=== PATIENT | female | born 1960 | race Caucasian/White ===

== ENCOUNTER 2018-05-04 14:03 | Emergency (ER) | payer SELFPAY ==
[2018-05-04 14:43] VITALS: BP 133/96; PULSE 87; TEMP 98.7; BMI 29.2
--- NOTE | 2018-05-04 15:35 | PDOC ---
History of Present Illness - General Chief Complaint: Rash Stated Complaint: HIVES ALL OVER THE BODY Time Seen by Provider: 05/04/18 14:43 History Source: Patient Exam Limitations: No Limitations - History of Present Illness Initial Comments: 05/04/18 15:43 57 yo F w/ no sig PMHx comes in c/o a painful itchy rash to the L upper back, L side of the neck which started while she was cooking 2 days ago. She also had a tactile fever, took tylenol and it went away. NO other complaints today. no NVD , no change in appetite, no pain anywhere else, no rash on eyes/ears, no eye pain/ear pain. NO known exposure to any allergens/irritants, no known sick contacts, no recent travel. Pt had varicella as a kid. Past History - Past Medical History Allergies/Adverse Reactions: Allergies Allergy/AdvReac Type Severity Reaction Status Date / Time No Known Allergies Allergy Verified 05/04/18 14:35 Home Medications: Ambulatory Orders Acetaminophen W/ Codeine #3 [Tylenol # 3 -] 1 tab PO Q4H 3 Days #10 tablet MDD 6 05/04/18 Acyclovir [Zovirax -] 800 mg PO 5XD 7 Days #35 tablet 05/04/18 - Suicide/Smoking/Psychosocial Hx Smoking History: Never smoked Review of Systems - Review of Systems Able to Perform ROS?: Yes Constitutional: Yes: Fever. No: Chills, Malaise, Night Sweats HEENTM: No: Eye Pain, Recent change in vision, Throat Pain Respiratory: No: Cough, Shortness of Breath Cardiac (ROS): No: Chest Pain, Palpitations, Chest Tightness ABD/GI: No: Diarrhea, Nausea, Vomiting, Abdominal cramping : No: Dysuria, Hematuria Musculoskeletal: No: Back Pain Integumentary: Yes: Rash Neurological: No: Headache, Numbness, Dizziness Psychiatric: No: Change in Appetite Endocrine: No: Unexplained Weight Loss *Physical Exam - Vital Signs Last Vital Signs Temp Pulse Resp BP Pulse Ox 98.7 F 87 20 133/96 98 05/04/18 14:39 05/04/18 14:39 05/04/18 14:39 05/04/18 14:39 05/04/18 14:39 - Physical Exam General Appearance: Yes: Nourished. No: Apparent Distress HEENT: positive: REJI, Normal ENT Inspection, Normal Voice. negative: Pale Conjunctivae, Scleral Icterus (R), Scleral Icterus (L), TM Bulging, TM Dull, TM Erythema (no vesicles on TMs) Neck: positive: Supple. negative: Decreased range of motion, Tender midline Respiratory/Chest: positive: Lungs Clear, Normal Breath Sounds. negative: Respiratory Distress, Accessory Muscle Use Cardiovascular: positive: Regular Rhythm, Regular Rate Gastrointestinal/Abdominal: positive: Normal Bowel Sounds, Soft. negative: Tender Musculoskeletal: positive: Normal Inspection. negative: CVA Tenderness, Decreased Range of Motion Extremity: positive: Normal Capillary Refill, Normal Inspection, Normal Range of Motion. negative: Tender, Pedal Edema Integumentary: positive: Normal Color, Dry, Rash (scattered maculopapular erythematous lesions with some vesicles, in a dermatomal pattern to the L upper back, L side of the neck, extending to the shoulder but not crossing the midline , not affecting eyes or ears.). negative: Jaundice Neurologic: positive: Fully Oriented, Alert, Normal Mood/Affect Moderate Sedation - Procedure Monitoring Vital Signs: Procedure Monitoring Vital Signs Temperature 98.7 F 05/04/18 14:39 Pulse Rate 87 05/04/18 14:39 Respiratory Rate 20 05/04/18 14:39 Blood Pressure 133/96 05/04/18 14:39 O2 Sat by Pulse Oximetry (%) 98 05/04/18 14:39 Medical Decision Making - Medical Decision Making 05/04/18 15:53 57 yo w/ shingles, WIll discharge with acyclovir, T3. Return for worsening/concerning symptoms Pt is in NAD, tolerating PO. I counseled her on how contagious it can be, told her to stay away from women and unvaccinated children. She verbalized understanding. I told her that until all lesions are crusted over , she is contagious 05/04/18 15:56 *DC/Admit/Observation/Transfer Diagnosis at time of Disposition: Shingles Qualifiers: Herpes zoster complications: unspecified herpes zoster complication Qualified Code(s): B02.8 - Zoster with other complications - Discharge Dispostion Disposition: HOME Condition at time of disposition: Stable - Prescriptions Prescriptions: Acetaminophen W/ Codeine #3 [Tylenol # 3 -] 1 tab PO Q4H 3 Days #10 tablet MDD 6 Acyclovir [Zovirax -] 800 mg PO 5XD 7 Days #35 tablet - Referrals - Patient Instructions Printed Discharge Instructions: DI for Shingles Additional Instructions: Eso es contagioso hasta que todo esta seco. Cuidate especialmente con las mujeres embarazadas and los urvashi que no tienen jose f vacunas. - Post Discharge Activity
== END 2018-05-04 15:48 | disposition home or self-care (01) ==
LOC: JERFT 14:03
DX: B02.8 Zoster with other complications (principal)
CPT/HCPCS: 99281-25